=== PATIENT | female | born 1925 | race Caucasian/White ===

== ENCOUNTER 2016-08-21 14:01 | Emergency (ER) | payer MEDICARE ==
[~2016-08-21 14:01] MED LIST: ALEVE220 M1 PO; ALLOPURINOL100 MG PO; AMARYL2 MG PO; ASPIRIN325 MG PO; COLCRYS0.6 MG PO; FEOSOL325 MG PO; LASIX40 MG PO; LOPRESSOR50 MG PO; MUCINEX 600MG600 MG PO; PRILOSEC20 MG PO; RIVASTIGMINE TD; SEROQUEL 25MG T25 MG PO; VIBRAMYCIN100 MG PO
[2016-08-21 16:33] LABS: BASOPHIL 0.5 % (0-2); HCT 26.5 % (37.0-47.0); HGB 8.8 g/dl (12.5-16.0); LYMPHOCYTE 28.2 % (15-48); MCH 31.8 pg (25.0-31.0); MCHC 33.2 g/dL (32.0-36.0); MCV 95.7 fL (78.0-100.0); MONOCYTE 9.5 % (0-12); MPV 9.7 fL (6.0-9.5); NEUTROPHIL 56.8 % (41-80); PLT 178 K/uL (150-400); RBC 2.77 M/uL (4.20-5.40); RDW 12.9 % (11.5-14.0); WBC 5.8 K/uL (4.0-10.5)
[2016-08-21 16:44] LABS: ALBUMIN 3.5 g/dL (3.4-4.8); BILIRUBIN - TOTAL 0.4 mg/dL (0.1-1.0); GLOBULIN (CALCULATION) 3.1 g/dL (2.2-4.2); POTASSIUM 4.8 mmol/L (3.5-5.1); TOTAL PROTEIN 6.6 g/dL (6.4-8.3)
== END 2016-08-21 19:07 | disposition home or self-care (01) ==
LOC: FER 14:01
PROVIDERS: Emergency Medicine
DX: R63.0 Anorexia (principal); E11.9 Type 2 diabetes mellitus without complications; I10 Essential (primary) hypertension; F03.90 Unspecified dementia, unspecified severity, without behavioral disturbance, psychotic disturbance, mood disturbance, and anxiety; Z95.1 Presence of aortocoronary bypass graft
CPT/HCPCS: 36415; 80053; 85025